=== PATIENT | female | born 1980 | race Two or more races ===

== ENCOUNTER 2017-05-24 22:03 | Emergency (ER) | payer SELFPAY ==
[2017-05-24 22:09] VITALS: BP 115/77; PULSE 68; TEMP 97.9; BMI 30.4
--- NOTE | 2017-05-24 22:32 | PDOC ---
History of Present Illness - General History Source: Patient Exam Limitations: No Limitations - History of Present Illness Initial Comments: 05/24/17 23:10 The patient is a 37-year-old female, with no significant past medical history, who presents to the ED with bite to left lower leg. Pt was bit 3 days ago by an unknown insect. She did visit a pharmacist who advised the pt to take an antihistamine. She reports taking three different antihistamines with no relief of her symptoms. On exam, pt states that the bite is painful and that the pain is worsened when ambulating. She reports that [place] is visiting from [place] and is returning on 06/10. Pt is on contraceptive and is not . Pt denies any fever or chills. <Alexandra Wade - Last Filed: 05/24/17 23:10> <John Cornejo - Last Filed: 05/24/17 23:47> - General Chief Complaint: Wound Stated Complaint: BITE Time Seen by Provider: 05/24/17 22:32 Past History <Alexandra Wade - Last Filed: 05/24/17 23:10> - Surgical History Abdominal Surgery: Yes (denny gomez 12/09) - Psycho/Social/Smoking Cessation Hx Suicidal Ideation: No Smoking History: Never smoked <John Cornejo - Last Filed: 05/24/17 23:47> - Past Medical History Allergies/Adverse Reactions: Allergies Allergy/AdvReac Type Severity Reaction Status Date / Time No Known Allergies Allergy Verified 05/24/17 22:06 Home Medications: Ambulatory Orders Sulfamethoxazole/Trimethoprim [Bactrim Ds -] 1 tab PO DAILY #20 tablet 05/24/17 Review of Systems - Review of Systems Able to Perform ROS?: Yes Comments:: 05/24/17 23:10 CONSTITUTIONAL: No fever, no chills, no fatigue EYES: No visual changes ENT: No ear pain, no sore throat CARDIOVASCULAR: No chest pain, no palpitations RESPIRATORY: No cough, no SOB GI: No abdominal pain, no nausea, no vomiting, no constipation, no diarrhea GENITOURINARY: No dysuria, no frequency, no hematuria MUSKULOSKELETAL: No backpain, no joint pain, no myalgias SKIN: +bite to left lower leg. NEURO: No headache <Alexandra Wade - Last Filed: 05/24/17 23:10> *Physical Exam - Vital Signs Last Vital Signs Temp Pulse Resp BP Pulse Ox 97.9 F 68 16 115/77 99 05/24/17 22:07 05/24/17 22:07 05/24/17 22:07 05/24/17 22:07 05/24/17 22:07 - Physical Exam Comments: 05/24/17 23:11 CONSTITUTIONAL: Well-appearing; well-nourished; in no apparent distress HEAD: Normocephalic; atraumatic EYES: PERRL; EOM intact ENMT: External appears normal; normal oropharynx NECK: Supple; non-tender; no cervical lymphadenopathy CARD: Normal S1, S2; no murmurs, rubs, or gallops RESP: Normal chest excursion with respiration; breath sounds clear and equal bilaterally; no wheezes, rhonchi, or rales ABD: Soft, non-distended; non-tender; no palpable organomegaly, no palpable hernias NEURO: No focal neurological deficiencies. <Alexadnra Wade - Last Filed: 05/24/17 23:10> - Vital Signs Last Vital Signs Temp Pulse Resp BP Pulse Ox 97.9 F 68 16 115/77 99 05/24/17 22:07 05/24/17 22:07 05/24/17 22:07 05/24/17 22:07 05/24/17 22:07 - Physical Exam Comments: 05/24/17 23:45 EXTR: Left lower extremity: well demarcated area of erythema and discoloration to the medial aspect of the left ankle c/w cellulitis, no subq emphysema; dorsalis pedis and tibialis posterior are +2; there are no petechia <John Cornejo - Last Filed: 05/24/17 23:47> ED Treatment Course - Medications Given in the ED: ED Medications Discontinued Medications Generic Name Dose Route Start Last Admin Trade Name Freq PRN Reason Stop Dose Admin Trimethoprim/Sulfamethoxazole 1 each 05/24/17 22:40 05/24/17 22:54 Bactrim Ds - PO 05/24/17 22:41 1 each ONCE ONE Administration <Alexandra Wade - Last Filed: 05/24/17 23:10> *DC/Admit/Observation/Transfer - Attestations Scribe Attestion: 05/24/17 23:12 Documentation prepared by Alexandra Wade, acting as medical sales for John Cornejo MD. <Alexandra Wade - Last Filed: 05/24/17 23:10> - Attestations Physician Attestion: 05/24/17 23:45 The documentation was prepared by the scribe under my direct supervision. I have reviewed the documentation which correctly represents the findings, medical decision-making and critical action taken by me. <John Cornejo - Last Filed: 05/24/17 23:47> Diagnosis at time of Disposition: Cellulitis Qualifiers: Site of cellulitis: extremity Site of cellulitis of extremity: lower extremity Laterality: left Qualified Code(s): L03.116 - Cellulitis of left lower limb - Discharge Dispostion Disposition: HOME Condition at time of disposition: Stable - Prescriptions Prescriptions: Sulfamethoxazole/Trimethoprim [Bactrim Ds -] 1 tab PO DAILY #20 tablet - Referrals Referrals: [facility] [Provider Group] - Patient Instructions Printed Discharge Instructions: DI for Cellulitis -- Adult
[2017-05-24] MEDS ORDERED: SULFAMETHOXAZOLE/TRIMETHOPRIM 800MG/160MG D.S. TABLET PO ONE (22:40)
[2017-05-24] MEDS ORDERED: SULFAMETHOXAZOLE/TRIMETHOPRIM 800MG/160MG D.S. TABLET ONE (22:55)
== END 2017-05-24 23:53 | disposition home or self-care (01) ==
LOC: JER 22:03
DX: L03.116 Cellulitis of left lower limb (principal)
CPT/HCPCS: 99281-25